=== PATIENT | male | born 1975 | race Asian ===

== ENCOUNTER 2017-11-11 22:00 | Inpatient (IN) | payer OTHER ==
[~2017-11-11] VITALS: Ht 172.7 cm; Wt 62.1 kg
--- NOTE | ~2017-11-11 | P ---
[facility] [place] [address] PROCEDURE REPORT Name: MARGARITA MENDES Room #: 457-P [facility] IN M.R.#: [id number] Admission: 11/12/17 Attend Phys: Zuhair Khan MD Discharge: 11/13/17 Date of : 75 Report #: [id number] THIS REPORT FOR: //name// CC: [facility] physician/PCP Zuhair Khan MD DATE OF SERVICE: 11/13/2017 PROCEDURE PERFORMED: Colonoscopy with polypectomy and bleeding control. HISTORY OF PRESENT ILLNESS: The patient is a 42-year-old male with left lower quadrant abdominal pain. CT scan of the abdomen and pelvis initially showed the possibility of acute appendicitis; however, repeat imaging yesterday shows resolution of the inflammation. He also had an abdominal ultrasound, which showed possible diffuse hepatic edema/inflammation. He does have mildly elevated liver function test. There is also a trace amount of left perinephric fluid present of indeterminate etiology. Left renal inflammatory process such as pyelonephritis would be a consideration. Plan is for colonoscopy and the patient also reports diarrhea. DESCRIPTION OF PROCEDURE: The risks and benefits of the procedure were explained to the patient, those risks including but not limited to bleeding, perforation, the risk of sedation. He understood these risks and gave informed consent. Sedation was given using propofol per anesthesia. Next, a digital rectal exam was initially performed, which was normal. Next, using a standard Olympus colonoscope, the scope was placed in the patient's anus and advanced under direct vision to the cecum. The overall prep was good. The cecum and ileocecal valve were normal in appearance. Terminal ileum was intubated and normal in appearance. In the ascending colon, a 5-mm sessile polyp was noted. This was removed by snare cautery. There was bleeding after polypectomy therefore, I placed 2 endoclips. No further bleeding was noted after endoclip placement. The transverse and descending colon were normal. A few small scattered diverticula were noted in the sigmoid colon, no evidence of inflammation. The rectal mucosa was normal. On retroflexion, no abnormalities were noted. Because the patient had recent diarrhea, biopsies were obtained to rule out the possibility of microscopic colitis. The scope was then withdrawn and the procedure terminated. The patient tolerated the procedure. IMPRESSION: 1. Colon polyp. 2. A few small diverticula in the sigmoid colon, no evidence of inflammation. 3. Otherwise, normal colonoscopy. RECOMMENDATIONS: 1. Await biopsy results. [address] [address] PROCEDURE REPORT Name: MARGARITA MENDES Room #: 457-P [facility] IN M.R.#: [id number] Admission: 11/12/17 Attend Phys: Zuhair Khan MD Discharge: 11/13/17 Date of : 75 Report #: [id number] 2. Advance diet as tolerated. May consider antibiotic if the patient does not improve from a clinical standpoint. Currently, he is afebrile and his white count is normal. Thank you for allowing me to participate in his care. By: [id number] Akbar Lerma MD /camrny
--- NOTE | ~2017-11-11 | PATH ---
[facility] [place] [address] PATHOLOGY RPT PROCEDURE Name: MARGARITA MENDES Room #: 457-P DIS IN M.R.#: [id number] Admission: 11/12/17 Date of : 75 Discharge: 11/13/17 Report #: [id number] Path Case #: [id number] [facility] Accession Number: [id number] . 01 Material submitted: . PART A: POLYP ASCENDING COLON PART B: RANDOM COLON BIOPSY . 01 Clinical history: . Pre-OP DX: Abdominal pain Post-OP DX: Colon polyp . 02 Diagnosis: A. "Polyp ascending colon", biopsy: - Tubular adenoma; no high-grade dysplasia. . B. "Random colon BX, R/O microscopic colitis", biopsy: - Colonic mucosa with focal active colitis; no dysplasia seen. (See comment) (GEORGEW:farzad; 11/16/2017) QMS/11/16/2017 . 02 Comment: Focal active colitis can be seen in resolving infectious type colitis, incidentally with bowel preparation, and quiescent chronic idiopathic inflammatory bowel disease. No chronic architectural changes or increase in chronic inflammation is identified. Clinical and endoscopic correlation is recommended. . 02 Electronically signed: . Radha Fong MD, Pathologist NPI- [id number] . 01 Gross description: . A. Received in formalin labeled "Margarita Mendes, polyp ascending colon," is a 0.5 x 0.4 x 0.4 cm polypoid piece of cotto soft tissue. The margin is inked and the specimen is sectioned perpendicular to the margin and entirely submitted in cassette A1. . B. Received in formalin labeled "Margarita Mendes, random colon BX, rule out microscopic colitis," are 2 segments of cotto soft tissue measuring 0.8 x 0.3 x 0.2 cm in aggregate dimensions and ranging from 0.3 to 0.5 cm in maximum dimension. The specimen is submitted entirely in cassette B1. (TSD; 11/13/2017) TOB/TOB . 02 Pathologist provided ICD-10: [address] [address] PATHOLOGY RPT PROCEDURE Name: MARGARITA MENDES Room #: 457-P DIS IN M.R.#: [id number] Admission: 11/12/17 Date of : 75 Discharge: 11/13/17 Report #: [id number] Path Case #: [id number] D12.2, K52.9 . 02 CPT . 653014, [id number] Performed at: [address], [place], [place] [id number] MD Christoph Gonzalez MD Phone: [phone] Performed at: [address] [id number] MD Jjoo Monet MD Phone: [phone]
[2017-11-11 22:19] VITALS: BP 164/84
[2017-11-11 22:24] LABS: ABSOLUTE NEUTROPHILS 9.3 thou/uL (1.4-8.2); BASOPHILS 0.5 % (0.0-2.0); EOSINOPHILS 0.2 % (0.0-3.0); HEMATOCRIT 42.1 % (42.0-52.0); HEMOGLOBIN 14.6 gm/dL (14.0-18.0); MCH 30.5 pg (26.0-34.0); MCHC 34.8 g/dL (28.0-37.0); MCV 87.7 fL (80.0-100.0); MONOCYTES 5.3 % (1.0-8.0); PLATELET COUNT 218 thou/uL (150-400); RDW 12.9 % (10.5-14.5); WBC 10.9 thou/uL (4.0-11.0)
[2017-11-11 22:31] LABS: CALCIUM 9.8 mg/dL (8.5-10.1); CREATININE 1.7 mg/dL (0.7-1.3)
[2017-11-11 22:36] LABS: ALBUMIN 4.8 g/dL (3.4-5.0); TOTAL PROTEIN 8.2 g/dL (6.4-8.2)
[2017-11-11 23:15] LABS: URINE BILIRUBIN NEGATIVE (Negative); URINE BLOOD 1+ (Negative); URINE CLARITY CLEAR; URINE COLOR YELLOW; URINE GLUCOSE-RANDOM* NEGATIVE (Negative); URINE KETONES 3+ (Negative); URINE LEUKOCYTES-REFLEX NEGATIVE (Negative); URINE NITRITE-REFLEX NEGATIVE (Negative); URINE PROTEIN (DIPSTICK) NEGATIVE (Negative); URINE UROBILINOGEN 0.2 E.U./dl (0.2-1.0)
[2017-11-11 23:29] LABS: URINE REDUCING SUBSTANCE NEGATIVE
[2017-11-11 23:30] LABS: BACTERIA-REFLEX None Seen /HPF (None Seen); CASTS None Seen /LPF (None Seen); CRYSTALS None Seen /LPF (None Seen); MUCUS None Seen strn/LPF (None Seen); SQUAMOUS None Seen /LPF (0-3); URINE RBC None Seen /HPF (0-2); URINE WBC-REFLEX None Seen /HPF (0-5)
[2017-11-12] VITALS (7 sets, daily range): BP systolic 147–177; BP diastolic 76–83
[2017-11-12 07:21] LABS: HEMATOCRIT 37.7 % (42.0-52.0)
[2017-11-12 07:34] LABS: ALBUMIN 3.6 g/dL (3.4-5.0); CALCIUM 8.3 mg/dL (8.5-10.1); CREATININE 1.5 mg/dL (0.7-1.3); MAGNESIUM 1.8 mg/dL (1.8-2.4); POTASSIUM 3.9 mmol/L (3.5-5.1); TOTAL BILIRUBIN 1.6 mg/dL (<0.1-1.0); TOTAL PROTEIN 6.6 g/dL (6.4-8.2)
[2017-11-12 13:32] LABS: DIRECT BILIRUBIN 0.3 mg/dL (<0.1-0.3); TOTAL BILIRUBIN 1.5 mg/dL (<0.1-1.0)
[2017-11-13 03:53] VITALS: BP 133/55
[2017-11-13 05:35] LABS: ABSOLUTE NEUTROPHILS 7.5 thou/uL (1.4-8.2); BASOPHILS 0.9 % (0.0-2.0); EOSINOPHILS 0.7 % (0.0-3.0); HEMATOCRIT 36.3 % (42.0-52.0); HEMOGLOBIN 12.6 gm/dL (14.0-18.0); LYMPHOCYTES 8.3 % (24.0-44.0); MCH 30.4 pg (26.0-34.0); MCHC 34.6 g/dL (28.0-37.0); MCV 87.9 fL (80.0-100.0); MONOCYTES 9.4 % (1.0-8.0); PLATELET COUNT 150 thou/uL (150-400); POLYS 80.7 % (36.0-66.0); RBC 4.13 mil/uL (4.50-6.00); RDW 12.7 % (10.5-14.5); WBC 9.3 thou/uL (4.0-11.0)
[2017-11-13 08:00] VITALS: BP 131/73
[2017-11-13 16:00] VITALS: BP 129/82
[2017-11-13 16:27] VITALS: BP 131/73
[2017-11-15 01:10] LABS: HAV IgM AB (ANTI-HAV IgM) Negative (Negative); HEPATITIS B SURFACE AG Negative (Negative); HEPATITIS C VIRUS AB <0.1 (0.0-0.9)
== END 2017-11-13 18:09 | disposition home or self-care (01) | DRG 683 ==
LOC: ER 22:00 → EROBS 11-12 00:59 → 4W 11-12 00:59
PROVIDERS: Emergency Medicine; Internal Medicine Gastroenterology; Nurse Practitioner; Nurse Practitioner Acute Care
PROC: 0W3P8ZZ Control Bleeding in Gastrointestinal Tract, Via Natural or Artificial Opening Endoscopic (ICD-10-PCS; principal; 2017-11-13)
PROC: 0DBK8ZZ Excision of Ascending Colon, Via Natural or Artificial Opening Endoscopic (ICD-10-PCS; principal; 2017-11-13)
DX: N17.9 Acute kidney failure, unspecified (principal); E87.1 Hypo-osmolality and hyponatremia; K57.30 Diverticulosis of large intestine without perforation or abscess without bleeding; E86.0 Dehydration; K63.5 Polyp of colon; R00.1 Bradycardia, unspecified; K76.0 Fatty (change of) liver, not elsewhere classified; E80.4 Gilbert syndrome; Z79.899 Other long term (current) drug therapy
CPT/HCPCS: 10040; 62110; 62900; 70005